=== PATIENT | female | born 1985 | race Asian ===

== ENCOUNTER → 2022-03-13 | Emergency (ER) | payer OTHER ==
[~2022-03-13] VITALS: Ht 162.6 cm; Wt 59.4 kg
[~2022-03-13] MED LIST: AMOX-430 PO; BACI/NEOM/POLY B OINT PKT 1 UDPKT PACKET TP ONE
[2022-03-13 13:42] VITALS: BP 122/73
--- NOTE | 2022-03-13 14:50 | NUR ---
Patient discharged to home in stable condition. Written and verbal after care instructions given. Patient verbalizes understanding of instruction.
== END | disposition home or self-care (01) ==
LOC: ER 14:29
DX: S60.410A Abrasion of right index finger, initial encounter (principal); W50.3XXA Accidental bite by another person, initial encounter; Y93.89 Activity, other specified; Y92.89 Other specified places as the place of occurrence of the external cause; Y99.8 Other external cause status